=== PATIENT | male | born 1930 | race Caucasian/White ===

== ENCOUNTER 2016-08-25 00:19 | Observation (INO) | payer MEDICARE ==
[~2016-08-25] VITALS: Ht 177.8 cm; Wt 80.0 kg
[2016-08-25] VITALS (9 sets, daily range): BP systolic 109–146; BP diastolic 53–77; PULSE 42–67; RESP 18–19; TEMP 98–98.4; O2SAT 46–100
[~2016-08-25 00:19] MED LIST: GLYB1TAB51 PO; HYDR12.56 PO; PRIN10TA PO
[2016-08-25] MEDS ORDERED: METOCLOPRAMIDE INJ 10 MG in SODIUM CHLORIDE 0.9% INJ 50 ML IV ONE (00:30)
[2016-08-25] MEDS ORDERED: MECLIZINE HCL 25 MG TAB PO ONE (00:30)
[2016-08-25] MEDS ORDERED: SODIUM CHLORIDE 0.9% FLUSH 10 ML FLUSH IVF PRN (00:30)
--- NOTE | 2016-08-25 00:56 | RADRPT ---
EXAM DATE/TIME: 08/25/2016 00:38 [facility] COMPARISON: No previous studies available for comparison. INDICATIONS : Dizziness. RADIATION DOSE: 56.35 CTDIvol (mGy) MEDICAL HISTORY : Hypertension. Cardiovascular disease Diabetes mellitus type 2. SURGICAL HISTORY : None. ENCOUNTER: Initial ACUITY: 1 day PAIN SCALE: 0/10 LOCATION: cranial TECHNIQUE: Multiple contiguous axial images were obtained of the head. Using automated exposure control and adj ustment of the mA and/or kV according to patient size, radiation dose was kept as low as reasonably a chievable to obtain optimal diagnostic quality images. FINDINGS: CEREBRUM: The ventricles are normal for age. No evidence of midline shift, mass lesion, hemorrhage or acute in farction. No extra-axial fluid collections are seen. POSTERIOR FOSSA: The cerebellum and brainstem are intact. The 4th ventricle is midline. The cerebellopontine angle i s unremarkable. EXTRACRANIAL: The visualized portion of the orbits is intact. SKULL: The calvaria is intact. No evidence of skull fracture. CONCLUSION: Unremarkable noncontrast CT Melecio Echeverria MD on August 25, 2016 at 0:53 Board Certified Radiologist. This report was verified electronically.
[2016-08-25 01:17] LABS: AUTOMATED NEUTROPHIL # 2.5 TH/MM3 (1.8-7.7); BASOPHIL % 0.5 % (0.0-2.0); EOSINOPHIL # 0.1 TH/MM3 (0-0.4); EOSINOPHIL % 2.6 % (0.0-4.0); HEMATOCRIT 35.6 % (39.0-51.0); HEMO FLAGS DIFF FINAL; LYMPH % 37.6 % (9.0-44.0); LYMPHOCYTE # 1.9 TH/MM3 (1.0-4.8); MEAN CELL VOLUME 92.1 FL (80.0-100.0); MEAN CORPUSCULAR HEMOGLOBIN 31.5 PG (27.0-34.0); MEAN CORPUSCULAR HGB CONC 34.2 % (32.0-36.0); MONO % 10.7 % (0.0-8.0); NEUT % 48.6 % (16.0-70.0); PLATELET COUNT 148 TH/MM3 (150-450); RED BLOOD COUNT 3.86 MIL/MM3 (4.50-5.90); RED CELL DISTRIBUTION WIDTH 13.1 % (11.6-17.2); WHITE BLOOD COUNT 5.1 TH/MM3 (4.0-11.0)
[2016-08-25 01:20] LABS: APTT (PATIENT) 24.5 SEC (24.3-30.1); PROTHROMBIN TIME - PATIENT 10.6 SEC (9.8-11.6)
[2016-08-25 01:44] LABS: BICARBONATE 27.7 MEQ/L (21.0-32.0); MAGNESIUM 2.1 MG/DL (1.5-2.5); POTASSIUM 4.2 MEQ/L (3.5-5.1)
--- NOTE | 2016-08-25 01:52 | RADRPT ---
EXAM DATE/TIME: 08/25/2016 01:16 [facility] COMPARISON: No previous studies available for comparison. INDICATIONS : Shortness of breath. MEDICAL HISTORY : Hypertension. Cardiovascular disease. Diabetes mellitus type II. SURGICAL HISTORY : None. ENCOUNTER: Initial ACUITY: 1 day PAIN SCORE: 0/10 LOCATION: Bilateral chest FINDINGS: A single view of the chest demonstrates the lungs to be symmetrically aerated without evidence of mas s, infiltrate or effusion. The cardiomediastinal contours are unremarkable. Degenerative changes are noted in the right acromioclavicular joint with ossification in portions of the coracoclavicular lig ament. There are electrocardiac leads. CONCLUSION: No acute disease. Melecio Echeverria MD on August 25, 2016 at 1:50 Board Certified Radiologist. This report was verified electronically.
--- NOTE | 2016-08-25 02:26 | PD ---
HPI Chief Complaint: Chest Pain Time Seen by Provider: 00:30 Travel History International Travel<30 days: No Contact w/Intl Traveler<30days: No Traveled to known affect area: No History of Present Illness HPI Patient is an 85-year-old male brought in by EMS due to chest pain with nausea and vomiting. He states that he is going to bed when he suddenly felt very dizzy. He says he felt the room spinning around him. He became very nauseous and started vomiting. He also reports some left-sided chest pain that started around this time. He denies any shortness of breath. He says he has never had these symptoms before. Denies fever or chills. He denies any head trauma. He denies any headache. 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) Hypertension: Yes Immune Disorder: No Musculoskeletal: Yes (SHOULDER INJURY & SURGERY) Neurologic: No Psychiatric: No Respiratory: No Past Surgical History Other Surgery: Yes (FROZE PROSTATE GLAND) Social History Alcohol Use: No Tobacco Use: No Substance Use: No Allergies-Medications (Allergen,Severity, Reaction): Coded Allergies: No Known Allergies (Verified , 08/25/16) Reported Meds & Prescriptions Reported Meds & Active Scripts Active Reported Hctz (Hydrochlorothiazide) 12.5 Mg Cap 1 PO DAILY UNKNOWN DOSE Prinivil (Lisinopril) 10 Mg Tab 1 PO DAILY Diabeta (Glyburide) 5 Mg Tab 10 PO BIDAC Review of Systems Except as stated in HPI: all other systems reviewed are Neg General / Constitutional: No: Fever, Chills Eyes: No: Blurred Vision HENT: Positive: Vertigo Cardiovascular: Positive: Chest Pain or Discomfort Respiratory: No: Shortness of Breath Gastrointestinal: Positive: Nausea, Vomiting, No: Abdominal Pain Musculoskeletal: No: Myalgias, Edema Skin: No Rash, No Change in Pigmentation Neurologic: Positive: Dizziness, No: Weakness Physical Exam Narrative GENERAL: Awake and alert, in mild distress. SKIN: Focused skin assessment warm/dry. HEAD: Atraumatic. Normocephalic. EYES: Pupils equal and round. No scleral icterus. Extraocular movements intact. No nystagmus. ENT: No nasal bleeding or discharge. Mucous membranes pink and moist. NECK: Trachea midline. No JVD. CARDIOVASCULAR: Regular rate and rhythm. No murmur appreciated. RESPIRATORY: No accessory muscle use. Clear to auscultation. Breath sounds equal bilaterally. GASTROINTESTINAL: Abdomen soft, non-tender, nondistended. MUSCULOSKELETAL: No obvious deformities. No clubbing. No cyanosis. No edema. NEUROLOGICAL: Awake and alert. No obvious cranial nerve deficits. Motor grossly within normal limits. Normal speech. PSYCHIATRIC: Appropriate mood and affect; insight and judgment normal. Data Data Last Documented VS Vital Signs Date Time Temp Pulse Resp B/P Pulse Ox O2 Delivery O2 Flow Rate FiO2 08/25/16 00:35 100 Room Air 08/25/16 00:32 45 18 08/25/16 00:27 98.1 139/66 Orders Electrocardiogram (08/25/16 00:30) Basic Metabolic Panel (Bmp) (08/25/16 00:30) Ckmb (Isoenzyme) Profile (08/25/16 00:30) Complete Blood Count With Diff (08/25/16 00:30) Magnesium (Mg) (08/25/16 00:30) Prothrombin Time / Inr (Pt) (08/25/16 00:30) Act Partial Throm Time (Ptt) (08/25/16 00:30) Troponin I (08/25/16 00:30) Chest, Single Ap (08/25/16 00:30) Ecg Monitoring (08/25/16 00:30) Bilateral Bp Monitoring (08/25/16 00:30) Iv Access Insert/Monitor (08/25/16 00:30) Oximetry (08/25/16 00:30) Oxygen Administration (08/25/16 00:30) Sodium Chloride 0.9% Flush (Ns Flush) (08/25/16 00:30) Ct Brain W/O Iv Contrast(Rout) (08/25/16 ) Metoclopramide Inj (Reglan Inj) (08/25/16 00:30) Meclizine (Antivert) (08/25/16 00:30) Activity Bed Rest With Brp (08/25/16 02:26) Vital Signs (Adult) Q4H (08/25/16 02:26) Cardiac Rhythm .As Directed (08/25/16 02:26) Notify Dr: Other .PRN (08/25/16 02:26) Notify . Parameters (08/25/16 02:26) Resp Oxygen Nasal Cannula (08/25/16 ) Diet Heart Healthy (08/25/16 Breakfast) Ckmb (Isoenzyme) Profile (08/25/16 03:47) Ckmb (Isoenzyme) Profile (08/25/16 06:47) Troponin I (08/25/16 03:47) Troponin I (08/25/16 06:47) Electrocardiogram (08/25/16 03:47) Electrocardiogram (08/25/16 06:47) ^ Obtain (08/25/16 02:26) Sodium Chloride 0.9% Flush (Ns Flush) (08/25/16 02:30) Sodium Chloride 0.9% Flush (Ns Flush) (08/25/16 09:00) Ondansetron Inj (Zofran Inj) (08/25/16 02:30) Machine Setter / Telemetry VALORIE.Q8H (08/25/16 02:26) Admit Order (Ed Use Only) (08/25/16 ) CKMB (08/25/16 05:07) CKMB% (08/25/16 05:07) Labs Laboratory Tests Test 08/25/16 00:47 White Blood Count 5.1 TH/MM3 Red Blood Count 3.86 MIL/MM3 Hemoglobin 12.2 GM/DL Hematocrit 35.6 % Mean Corpuscular Volume 92.1 FL Mean Corpuscular Hemoglobin 31.5 PG Mean Corpuscular Hemoglobin 34.2 % Concent Red Cell Distribution Width 13.1 % Platelet Count 148 TH/MM3 Mean Platelet Volume 8.0 FL Neutrophils (%) (Auto) 48.6 % Lymphocytes (%) (Auto) 37.6 % Monocytes (%) (Auto) 10.7 % Eosinophils (%) (Auto) 2.6 % Basophils (%) (Auto) 0.5 % Neutrophils # (Auto) 2.5 TH/MM3 Lymphocytes # (Auto) 1.9 TH/MM3 Monocytes # (Auto) 0.5 TH/MM3 Eosinophils # (Auto) 0.1 TH/MM3 Basophils # (Auto) 0.0 TH/MM3 CBC Comment DIFF FINAL Differential Comment Prothrombin Time 10.6 SEC Prothromb Time International 1.0 RATIO Ratio Activated Partial 24.5 SEC Thromboplast Time Sodium Level 142 MEQ/L Potassium Level 4.2 MEQ/L Chloride Level 107 MEQ/L Carbon Dioxide Level 27.7 MEQ/L Anion Gap 7 MEQ/L Blood Urea Nitrogen 17 MG/DL Creatinine 0.94 MG/DL Estimat Glomerular Filtration 76 ML/MIN Rate Random Glucose 115 MG/DL Calcium Level 8.5 MG/DL Magnesium Level 2.1 MG/DL Total Creatine Kinase 96 U/L Troponin I 0.02 NG/ML [facility] Medical Decision Making Medical Screen Exam Complete: Yes Emergency Medical Condition: Yes Interpretation(s) ECG shows sinus bradycardia, no ST elevation or depression. Differential Diagnosis ACS versus NSTEMI versus STEMI versus vertigo Narrative Course Patient is an 85-year-old male who comes in complaining of dizziness, nausea, vomiting, chest pain. Exam shows no neurologic abnormalities. IV established, labs sent. Patient connected to the monitoring manager. Labs including troponin are negative. CT head performed shows no acute abnormality. Chest x-ray shows no acute abnormality. Patient given meclizine, Reglan. He was given aspirin by EMS. He reports feeling better after medications. He'll be placed in chest pain center for further management. Diagnosis Primary Impression: Chest pain Qualified Code: R07.9 - Chest pain, unspecified type Additional Impression: Vertigo Admitting Information Admitting Physician Requests: Gabrielle Cadet MD Aug 25, 2016 02:26
[2016-08-25] MEDS ORDERED: SODIUM CHLORIDE 0.9% FLUSH 10 ML FLUSH IV FLUSH PRN (02:30)
[2016-08-25] MEDS ORDERED: ONDANSETRON HCL 4 MG/2 ML VIAL IV PRN (02:30)
[2016-08-25 06:02] LABS: CREATINE KINASE 109 U/L (39-308)
[2016-08-25 06:15] LABS: CKMB 1.8 NG/ML (0.5-3.6)
[2016-08-25] MEDS ORDERED: SODIUM CHLORIDE 0.9% FLUSH 10 ML FLUSH IV FLUSH SCH (09:00)
--- NOTE | 2016-08-25 11:01 | ECHRPT ---
Indication: Chest pain, unspecified CONCLUSIONS Normal left ventricular size. mild concentric left ventricular hypertrophy. Doppler parameters are consistent with impaired left ventricular relaxtion (grade 1 diastolic dysfun ction). The right atrium is not well visualized. The interatrial septum not well visualized. aortic root 4.1mildly dilated proximal ascending aorta. Trace mitral valve regurgitation. Cannot rule out a bicuspid aortic valve or trileaflet valve with partially fused commissure. Moderate thickening of the aortic valve leaflets. Srde-hy-btjztqdm aortic valve regurgitation. Mild to moderate aortic valve stenosis. max 48 mean 22 ange 1.2The tricuspid valve is not well visualized. There is mild tricuspid valve regurgitation. The pulmonary valve is not well visualized. IVC 1.6 the inferior vena cava is normal in size. BP: / HR: Rhythm: MEASUREMENTS (Male / Female) Normal Values Technical Quality:Good, Fair 2D ECHO LV Diastolic Diameter PLAX 4.5 cm 4.2 - 5.9 / 3.9 - 5.3 cm LV Systolic Diameter PLAX 3.1 cm IVS Diastolic Thickness 1.4 cm 0.6 - 1.0 / 0.6 - 0.9 cm LVPW Diastolic Thickness 1.2 cm 0.6 - 1.0 / 0.6 - 0.9 cm LV Relative Wall Thickness 0.6 RV Internal Dim ED PLAX 3.2 cm LVOT Diameter 2.6 cm M-MODE Aortic Root Diameter MM 4.1 cm LA Systolic Diameter MM 3.4 cm LA Ao Ratio MM 0.8 AV Cusp Separation MM 1.3 cm DOPPLER AV Peak Velocity 345.0 cm/s AV Peak Gradient 47.6 mmHg AV Mean Gradient 22.3 mmHg AV Velocity Time Integral 72.5 cm AI Peak Velocity 415.0 cm/s AI Peak Gradient 68.9 mmHg AI Pressure Half Time 351.0 ms LVOT Peak Velocity 76.7 cm/s LVOT Peak Gradient 2.4 mmHg LVOT Velocity Time Integral 16.8 cm AV Area Cont Eq vti 1.2 cm AV Area Cont Eq pk 1.2 cm Mitral E Point Velocity 80.9 cm/s Mitral A Point Velocity 95.8 cm/s Mitral E to A Ratio 0.8 LV E' Lateral Velocity 5.9 cm/s Mitral E to LV E' Lateral Ratio 13.8 LV E' Septal Velocity 7.7 cm/s Mitral E to LV E' Septal Ratio 10.5 TR Peak Velocity 231.0 cm/s TR Peak Gradient 21.3 mmHg FINDINGS LEFT VENTRICLE Normal left ventricular size. The left ventricular systolic function is normal with an estimated eje ction fraction in the range of 60-65%. mild concentric left ventricular hypertrophy. Doppler parameters are consistent with impaired left ventricular relaxtion (grade 1 diastolic dysfun ction). RIGHT VENTRICLE Normal right ventricular size and systolic function. LEFT ATRIUM The left atrial size is normal. RIGHT ATRIUM The right atrium is not well visualized. ATRIAL SEPTUM The interatrial septum not well visualized. AORTA aortic root 4.1mildly dilated proximal ascending aorta. MITRAL VALVE Structurally normal mitral valve. Trace mitral valve regurgitation. AORTIC VALVE Cannot rule out a bicuspid aortic valve or trileaflet valve with partially fused commissure. Moderate thickening of the aortic valve leaflets. Sbaf-oy-qrbaqrix aortic valve regurgitation. Mild to moderate aortic valve stenosis. max 48 mean 22 ange 1.2 TRICUSPID VALVE The tricuspid valve is not well visualized. There is mild tricuspid valve regurgitation. PULMONARY VALVE The pulmonary valve is not well visualized. VESSELS IVC 1.6 the inferior vena cava is normal in size. PERICARDIUM No pericardial effusion. Angus Dai MD (Electronically Signed) Final Date:25 August 2016 11:00
--- NOTE | 2016-08-25 11:16 | HHI.HP ---
[facility] Primary Care Physician Fidel Scanlon MD Chief Complaint Chest pain History of Present Illness This is an 85-year-old male that presents to ED via [facility] to evaluate for nausea , dizziness, and chest discomfort. He states that last night he became dizzy. States the room was spinning. He became nauseous and had several episodes of emesis. After it had a couple episodes of emesis he began to have a numbing sensation in the middle his chest. The symptoms seemed to last a couple hours. [facility] was called. He was given sublingual nitroglycerin spray which he thinks may help the symptoms a little bit but still lasted about 2 hours. Denies history of CAD. He states he had a stress test about 10 years ago and that it was okay but has met any further evaluation for coronary disease. He states he follows Dr. tucker of cardiology to evaluate his aortic valve. States he had an echo about 4 months ago but doesn't really know more specific other than nothing else was needed. He denies recent illnesses. Denies fevers or chills. He denies sensation of heart beating rapidly or regular. Review of Systems General: Patient denies fevers, chills recent, and recent travel HEENT: Patient denies headache, sore throat, difficulty swallowing. Cardiovascular: Has the chest discomfort as mentioned above. Denies sensation of heart beating rapidly or irregularly. No syncope. Denies diaphoresis. He was dizzy. Describes the room spinning. Respiratory: He was short of breath. Denies inspirational chest discomfort. Denies coughing wheezing or hemoptysis. GI: He was nauseous with several episodes of emesis. Patient denies diarrhea, abdominal pain, bloody stools. Musculoskeletal: Patient denies joint pain or edema. Denies calf pain or edema. Neurovascular: Patient denies numbness, tingling, weakness in extremities. He was complaining of a numbing sensation in the center of his chest. He was dizzy describing the room spinning. Denies headache. Endocrine: Denies polyuria and polydipsia. Hematologic: Denies easy bruising. Skin: Denies rash or itching. Past Family Social History Allergies: Coded Allergies: No Known Allergies (Verified , 08/25/16) Past Medical History Aortic valve issues. Hypertension, diabetes, prostate cancer 1976. Denies hyperlipidemia and known CAD. Past Surgical History Prostate procedure 1976. Shoulder surgery. Reported Medications Reported Meds & Active Scripts Active Reported Hctz (Hydrochlorothiazide) 12.5 Mg Cap 1 PO DAILY UNKNOWN DOSE Prinivil (Lisinopril) 10 Mg Tab 1 PO DAILY Diabeta (Glyburide) 5 Mg Tab 10 PO BIDAC Active Ordered Medications Current Medications Medications (Trade) Dose Ordered Sig/Richa Route Start Time Stop Time Status Last Admin (NS Flush) 2 ml UNSCH PRN IVF 08/25/16 00:30 (NS Flush) 2 ml UNSCH PRN IV FLUSH 08/25/16 02:30 (NS Flush) 2 ml BID IV FLUSH 08/25/16 09:00 (Zofran Inj) 4 mg Q6H PRN IV 08/25/16 02:30 Family History He states that he has a half brother that has some type of heart disorder. Social History Patient is a nonsmoker. Denies alcohol or illicit drugs. Physical Exam Vital Signs Vital Signs Date Time Temp Pulse Resp B/P Pulse Ox O2 Delivery O2 Flow Rate FiO2 08/25/16 08:25 53 08/25/16 08:21 98.4 42 18 140/63 97 08/25/16 06:15 99 2.00 08/25/16 06:08 60 08/25/16 05:33 98.2 53 19 146/67 98 08/25/16 05:09 98.1 50 18 109/53 100 Nasal Cannula 2 08/25/16 00:35 100 Room Air 08/25/16 00:35 94 Room Air 08/25/16 00:32 45 18 95 Room Air 08/25/16 00:27 98.1 47 18 139/66 98 Physical Exam GENERAL: This is a well-nourished, well-developed patient, in no apparent distress. Patient speaks in clear complete sentences. Patient is pleasant. HEENT: Head is atraumatic and normocephalic. Neck is supple without lymphadenopathy and trachea is midline. No JVD or carotid bruits. CARDIOVASCULAR: There is a grade 3 systolic murmur right sternal border rating to the neck. Also grade 2 systolic murmur on left sternal border. Regular rate and rhythm without gallops, or rubs. RESPIRATORY: Clear to auscultation. Breath sounds equal bilaterally. No wheezes , rales, or rhonchi. Chest wall is nontender. No use of accessory muscles. GASTROINTESTINAL: Abdomen is nontender, nondistended. Abdomen soft. No obvious pulsatile mass or bruit. No CVA tenderness. Strong femoral pulses bilaterally. Normal bowel sounds in all quadrants. MUSCULOSKELETAL: Patient is moving upper and lower extremities freely. No calf tenderness or edema, no Homans sign. Strong pulses in upper and lower extremities. NEUROLOGICAL: Patient is alert and oriented. Cranial nerves 2-12 are grossly intact. No focal deficits and speech is clear. SKIN: No rash and turgor is normal. Laboratory Laboratory Tests Test 08/25/16 08/25/16 08/25/16 00:47 05:07 06:35 White Blood Count 5.1 Red Blood Count 3.86 Hemoglobin 12.2 Hematocrit 35.6 Mean Corpuscular Volume 92.1 Mean Corpuscular Hemoglobin 31.5 Mean Corpuscular Hemoglobin 34.2 Concent Red Cell Distribution Width 13.1 Platelet Count 148 Mean Platelet Volume 8.0 Neutrophils (%) (Auto) 48.6 Lymphocytes (%) (Auto) 37.6 Monocytes (%) (Auto) 10.7 Eosinophils (%) (Auto) 2.6 Basophils (%) (Auto) 0.5 Neutrophils # (Auto) 2.5 Lymphocytes # (Auto) 1.9 Monocytes # (Auto) 0.5 Eosinophils # (Auto) 0.1 Basophils # (Auto) 0.0 CBC Comment DIFF FINAL Differential Comment Prothrombin Time 10.6 Prothromb Time International 1.0 Ratio Activated Partial 24.5 Thromboplast Time Sodium Level 142 Potassium Level 4.2 Chloride Level 107 Carbon Dioxide Level 27.7 Anion Gap 7 Blood Urea Nitrogen 17 Creatinine 0.94 Estimat Glomerular Filtration 76 Rate Random Glucose 115 Calcium Level 8.5 Magnesium Level 2.1 Total Creatine Kinase 96 109 60 Troponin I 0.02 0.03 0.04 Creatine Kinase MB 1.8 Result Diagram: 08/25/16 0047 08/25/16 0047 Imaging Last 48 hours Impressions Chest X-Ray 08/25/16 0030 Signed Impressions: Service Date/Time: Thursday, August 25, 2016 01:16 - CONCLUSION: No acute disease. Melecio Echeverria MD Head CT 08/25/16 0000 Signed Impressions: Service Date/Time: Thursday, August 25, 2016 00:38 - CONCLUSION: Unremarkable noncontrast CT Melecio Echeverria MD Course EKGs have sinus bradycardia with first-degree AV block. No significant ST segment depressions or elevations. Assessment and Plan Assessment and Plan * Chest pain: Patient has had serial cardiac enzymes and EKGs for ruling out purposes. He will be seen by Dr. Avilez in the chest pain center and at that time further plan will be determined. He has murmurs that will need to be assessed with 2-D echo prior to doing a stress test. Patient also is bradycardic, will continue to monitor symptoms. He should follow-up with his prior care physician as well as his clothes marker after discharge. * Hypertension: Continue current medication. * Diabetes: Patient will be nothing by mouth at this time. Will cover with sliding scale insulin coverage that he should resume his medication at discharge. Patient is stable at this time. He is agreeable to this plan. Satinder Mejia Aug 25, 2016 11:16
[2016-08-25] MEDS ORDERED: GLUCAGON 1 MG/ML VIAL IM/SQ PRN (11:45)
[2016-08-25] MEDS ORDERED: DEXTROSE 50% IN WATER 50 ML VIAL(D50) IV PRN (11:45)
--- NOTE | 2016-08-25 12:08 | EKG ---
Date Performed: 08/25/2016 Time Performed: 00:35:38 PTAGE: 85 years EKG: SINUS BRADYCARDIA WITH FIRST DEGREE AV BLOCK RIGHT BUNDLE BRANCH BLOCK LEFT ANTERIOR FASCIC ULAR BLOCK LEFT AXIS DEVIATION ABNORMAL ECG PREVIOUS TRACING : 10/21/2008 14.50 DOCTOR: Rahat Avilez Interpretating Date/Time 08/25/2016 12:07:28
--- NOTE | 2016-08-25 12:13 | EKG ---
Date Performed: 08/25/2016 Time Performed: 05:23:11 PTAGE: 85 years EKG: SINUS BRADYCARDIA WITH FIRST DEGREE AV BLOCK RIGHT BUNDLE BRANCH BLOCK LEFT AXIS DEVIATION LEFT ANTERIOR FASICULAR BLOCK ABNORMAL ECG NO PREVIOUS TRACING DOCTOR: Rahat Avilez Interpretating Date/Time 08/25/2016 12:13:02
--- NOTE | 2016-08-25 12:15 | EKG ---
Date Performed: 08/25/2016 Time Performed: 06:08:34 PTAGE: 85 years EKG: SINUS BRADYCARDIA WITH FIRST DEGREE AV BLOCK RIGHT BUNDLE BRANCH BLOCK LEFT ANTERIOR FASCIC ULAR BLOCK LEFT AXIS DEVIATION ABNORMAL ECG PREVIOUS TRACING : 08/25/2016 00.35 DOCTOR: Rahat Avilez Interpretating Date/Time 08/25/2016 12:14:30
[2016-08-25] MEDS ORDERED: REGADENOSON INJ 0.4 MG/5 ML SYR ONE (12:47)
--- NOTE | 2016-08-25 14:37 | TR ---
Date Performed: 08/25/2016 Time Performed: 13:30:50 DOCTOR: Rahat Avilez DRUG LIST: CLINICAL HISTORY: REASON FOR TEST: CHEST PAIN REASON FOR ENDING: OBSERVATION: CONCLUSION: Lexiscan stress test was performed under standard four minute protocol. Radionuclide was injected one minute prior to ending the test. Developed warm feeling. Rare PACs were noted. No e lectrocardiographic abnormalities were present to suggest ischemia. Recovery was quick and uneventful with resolution of warm feeling. Nuclear imaging and interpretation are pending. COMMENTS:
--- NOTE | 2016-08-25 14:38 | RADRPT ---
EXAM DATE/TIME: 08/25/2016 12:52 [facility] COMPARISON: No previous studies available for comparison. INDICATIONS : Left chest pain with dizziness, nausea and vomiting Angina. DOSE: 27.1 mCi Tc99m Myoview at stress. 8.8 mCi Tc99m Myoview at rest. 0.4 mg Lexiscan STRESS SYMPTOMS: Warm feeling and headache. EJECTION FRACTION: 54% MEDICAL HISTORY : Hypercholesterolemia. Hypertension. Diabetes mellitus type 2. SURGICAL HISTORY : Left shoulder. ENCOUNTER: Initial ACUITY: 1 day PAIN SCALE: 6/10 LOCATION: Left chest TECHNIQUE: The patient underwent pharmacologic stress with infusion of prescribed dose. Continuous ECG tracing was monitored during stress. Gated SPECT imaging was performed after stress and conventional SPECT i maging was performed at rest. The examination was performed on a SPECT/CT scanner, both attenuation and non-corrected datasets were reviewed. FINDINGS: DISTRIBUTION: The maximum perfused segment at stress is in the anterior wall. PERFUSION STUDY: The pattern of perfusion at stress is within normal limits. GATED STUDY: Slight septal hypokinesia. No paradoxical motion. CONCLUSION: No stress-induced ischemia. Mild septal hypokinesia but still a normal left ventricular ejection frac tion. RISK CATEGORY: Low Yasir Tavarez MD on August 25, 2016 at 14:35 Board Certified Radiologist. This report was verified electronically.
[2016-08-25] MEDS ORDERED: INSULIN ASPART SUPPLEMENTAL SCALE SQ SCH (16:00)
[2016-08-25] MEDS ORDERED: METF500T PO (16:25)
--- NOTE | 2016-08-25 17:24 | HHI.DCPOC ---
Discharge Care Plan Diagnosis: (1) Chest pain (2) Hypertension (3) DM (diabetes mellitus) (4) Bradycardia Goals to Promote Your Health * To prevent worsening of your condition and complications * To maintain your health at the optimal level Directions to Meet Your Goals Take your medications as prescribed Follow your dietary instruction Follow activity as directed Keep your appointments as scheduled Take your immunizations and boosters as scheduled If your symptoms worsen call your PCP, if no PCP go to Urgent Care Center or Emergency Room Smoking is Dangerous to Your Health. Avoid second hand smoke Call the 24-hour hour crisis hotline for domestic abuse at Satinder Mejia Aug 25, 2016 17:24
== END 2016-08-25 18:00 | disposition home or self-care (01) ==
LOC: NEPE 00:19 → NEDA 02:29 → NEPGCP 05:18
PROVIDERS: ADMIT Internal Medicine Interventional Cardiology; ATTEND Internal Medicine Interventional Cardiology
DX: R07.89 Other chest pain (principal); I10 Essential (primary) hypertension; E11.9 Type 2 diabetes mellitus without complications; I35.9 Nonrheumatic aortic valve disorder, unspecified; R00.1 Bradycardia, unspecified; Z79.84 Long term (current) use of oral hypoglycemic drugs; Z85.46 Personal history of malignant neoplasm of prostate
CPT/HCPCS: 70450; 71010; 78452; 80048; 82550; 82552; 82948; 83735; 84484; 85025; 85610; 85730; 93005; 93017; 93306; 96374; 99285; A9502; G0378; J2765; J2785